=== PATIENT | male | born 1960 | race Two or more races ===

== ENCOUNTER → 2018-06-03 | Outpatient (CLI) | payer OTHER ==
--- NOTE | 2018-06-03 09:39 | RADIOLOGY REPORT (SQ) ---
EXAM DESCRIPTION: U/S ABD AORTIC SCREENING COMPLETED DATE/TIME: 06/03/2018 9:21 am REASON FOR STUDY: NICOTINE DEPENDENCE (F17.211) F17.211 NICOTINE DEPENDENCE, CIGARETTES, IN REMISSI ON COMPARISON: None. TECHNIQUE: Static and dynamic grayscale images acquired of the aorta and stored on PACs. Selected co debbie Doppler and spectral images recorded. LIMITATIONS: None. FINDINGS: AORTIC CALIBER MAXIMAL PROXIMAL: 2.9 x 3.0 cm. MID: 2.3 x 2.2 cm. DISTAL: 0.7 x 1.6 cm. ILIAC DIAMETER RIGHT: 0.9 x 0.8 cm. LEFT: 1.0 x 1.0 cm. OTHER: No other significant finding. IMPRESSION: 1. NO ABDOMINAL AORTIC ANEURYSM. Please see comment below. COMMENT: Aortic aneurysm imaging followup: 2.6-2.9 cm Every 5 years* *Based upon the Society for Vascular Surgery Guidelines: J Vasc Surg. 2009 Oct;50(4 Suppl):S2-49 *For aortas of maximum diameter of 2.6-2.9 cm meeting the criteria for AAA (?1.5 x proximal normal se gment) TECHNICAL DOCUMENTATION: JOB ID: [id number] [employer]- All Rights Reserved Reading location - IP/workstation name: [email or web address]
== END ==
LOC: RAD 08:40
PROVIDERS: ATTEND Family Medicine
DX: F17.211 Nicotine dependence, cigarettes, in remission (principal)
CPT/HCPCS: 76706